=== PATIENT | male | born 1935 | race Caucasian/White ===

== ENCOUNTER 2017-06-07 07:08 | Emergency (ER) | payer MEDICARE, SELFPAY ==
[2017-06-07 07:11] VITALS: BP 201/100; PULSE 78; RESP 18; TEMP 36.3; O2SAT 98; BMI 24.6
--- NOTE | 2017-06-07 07:17 | CT_ITS ---
STUDY: CT ABDOMEN AND PELVIS WITHOUT CONTRAST REASON FOR EXAM: Male, 82 years old. Right flank pain. History of kidney stones. RADIATION DOSAGE (If Supplied By Facility): CTDIvol = ( 6.47 ) mGy, DLP = ( 291.00 ) mGycm TECHNIQUE: Transaxial images were obtained from the dome of the diaphragm to the symphysis pubis without oral contrast, and without intravenous contrast. Sagittal and coronal images were reconstructed. Individualized dose optimization techniques were used for this CT. COMPARISON: Comparison is made with prior study dated February 14, 2017. FINDINGS: Mild degree of increased markings at the lung bases suggestive of a bibasilar atelectasis. This has improved as compared to prior study. Coronary artery calcification. Stable appearance of the hepatic cysts. The largest is in the peripheral aspect of the left lobe of the liver. This measures 3 cm x 3.2 cm. Normal gallbladder and extrahepatic biliary system. There are multiple benign calcified granulomata of the spleen. Normal pancreas. Normal bilateral adrenal glands. Right perinephric stranding. Engorgement of the right kidney. Moderate right hydronephrosis and hydroureter due to a 6 mm calculus in the distal portion of the right ureter just proximal to the ureterovesical junction. Nonobstructive left intrarenal calculi. The largest measures 5 mm. There is a small hiatal hernia. Normal small intestine. There are multiple colonic diverticula consistent with diverticulosis. The appendix is visualized and appears normal. There is scattered atherosclerotic calcification of the abdominal aorta, without a demonstrated aneurysm. Normal inferior vena cava. Normal retroperitoneum. Normal urinary bladder. Marked enlargement of the prostate. The prostate measures 5.8 cm x 7.3 cm. This causes indentation of the bladder base. Central prostatic calcifications. There is a small umbilical hernia containing fat. There are diffuse degenerative changes of the visualized lumbar spine. CT/Abdomen/Pelvis without Cont IMPRESSION: 6 mm calculus in the distal portion of the right ureter causing right hydronephrosis and right hydroureter with perinephric stranding. Stable left nonobstructive intrarenal calculi. Sigmoid diverticulosis. Marked enlargement of the prostate with indentation of the bladder base. Electronically Signed: Mainor Carney MD at 9:33 EST Tel [phone], Service support ,
[2017-06-07] MEDS: 0.9% Normal Saline 1,000 ML 250 ML IV (07:28)
--- NOTE | 2017-06-07 07:30 | ED.VISSUMM ---
- ER Visit Summary Date of Service: 06/07/17 Chief Complaint: Right flank pain History of Present Illness: The patient is a [address] Reyes and Chucho Whelan. He reports that he has right flank pain that began this morning. Is a dull, intense pain that is 9 out of 10 at worst and 7 out of 10 currently. Is worsened by nothing relieved by nothing. He has had nausea without vomiting. He denies any diarrhea. His last problem was yesterday. He has had no melena or hematochezia. Reports he has dysuria without frequency that began yesterday. He states that he had hematuria approximately 2 weeks ago. No fever, chills, or other complaints. Physical Examination: Vitals: Stable. Afebrile. General: Well-nourished and well-developed. Head: Normocephalic atraumatic. Neck: Supple, no lymphadenopathy. No JVD. Nontender. Cardiovascular: Regular rate and rhythm. No murmurs. Respiratory: No respiratory distress. Clear to auscultation bilaterally. Abdominal: Soft, nontender, nondistended, normal bowel sounds. No guarding, rebound, or peritoneal signs. Back: Nontender. Extremities: Nontender, no edema. Skin: Normal color, no rash. Neurologic: Alert and oriented ?3. Cranial nerves II through XII are intact. Normal strength and sensation. Psych: Normal affect. Test Results: BMP is marked for a BUN of 22 and creatinine 1.42. His creatinine was 1.59 last February. CBC is normal. UA shows blood without infection. CT flank shows a 6 mm calculus distal right ureter with hydronephrosis/ureter and perinephric stranding. Marked enlargement of the prostate with indentation of the bladder base. Emergency Department Course and Treatment: Patient had an IV placed. He refused pain medications. Treatment Plan: The patient is already on Flomax. He will be discharged with Percocet instructed to follow-up Dr. Reyes in 3-5 days if he does not pass the stone. He will be given a urine strainer. Return to the emergency department for any worsening symptoms. Disposition: To home in improved and stable condition. Impression:. Right ureterolithiasis. 2. Chronic renal insufficiency. This note was generated with [employer] software. It may contain incorrect words, spelling, and punctuation that were not noted in review of the chart prior to signing ED Disposition - Plan for ED Patient: Chief Complaint: Flank Pain Instructions: ED Stone Renal W Colic Prescriptions: Oxycodone HCl/Acetaminophen [Percocet 5/325] 1 tablet PO Q6H PRN PRN #20 tablet PRN Reason: Pain Ondansetron [Zofran Odt] 4 mg PO Q8H PRN PRN #10 tablet PRN Reason: Nausea Referrals: Kai Coffman MD [NON-STAFF] - 3-5 Days if not improving
[2017-06-07 07:32] VITALS: BP 201/74; PULSE 67; RESP 15; O2SAT 99
[2017-06-07 07:43] LABS: Bacteria 0 SEEN /hpf (None Seen); Mucous, Urine 0 SEEN /hpf (<or=2+); Squamous Epithelial Cells - UA 0 SEEN /hpf (0-5); White Blood Cells 0 SEEN /hpf (0-5)
[2017-06-07 07:47] LABS: Absolute Lymphocyte Count 2.13 X10^3/ul (0.83-4.51); Absolute Neutrophil Count 4.1 X10^3/uL (2.0-7.7); Basophil# 0.03 X10^3/uL; Basophil% 0.4 % (0-1); Eosinophil# 0.19 X10^3/uL; Eosinophils% 2.7 % (0-5); Hematocrit 44.3 % (40-54); Hemoglobin 15.3 g/dl (13.0-16.5); Lymphocyte # 2.13 X10^3/ul (4.0); Lymphocyte % 30.6 % (19-41); Mean Corp Hgb Conc 34.5 g/gl (32-36); Mean Corpuscular Volume 92.7 fL (80-94); Mean Platelet Vol. 11.6 fl (6.2-12.0); Monocyte# 0.48 X10^3/uL; Monocyte% 6.9 % (0-10); Neutrophil % 59.1 % (47-70); Platelet Count 189 K/mm3 (150-450); RBC Distribution Width CV 13.4 % (11.6-14.6); RBC Distribution Width SD 44.4 fl (35.1-43.9); Red Blood Count 4.78 M/mm3 (4.6-6.2)
[2017-06-07 07:48] LABS: POSITIVE COUNT NO; POSITIVE DIFFERENTIAL NO; POSITIVE MORPHOLOGY NO
[2017-06-07 07:54] LABS: Color, Urine Yellow (Yellow); Glucose, Dipstick Normal (Normal); Ketone-Dipstick Negative (Negative); Leukocyte Esterase-Dipstick Negative /ul (Negative); Nitrite-Dipstick Negative (Negative); Occult Blood-Urine 150 /ul (Negative); Protein-Dipstick Negative (Negative); Specific Gravity, Urine 1.015 (1.002-1.030); Urine Bilirubin Dipstick Negative (Negative); Urine Clarity Clear (Clear); Urine Urobilinogen Normal (Normal)
[2017-06-07 07:58] LABS: Anion Gap 7 (5-15); BUN 22 mg/dL (7-18); BUN/Creat Ratio 15.5 RATIO (10-20); Calcium,Total 8.9 mg/dL (8.5-10.1); Chloride 105 mmol/L (98-107); Creatinine, Serum 1.42 mg/dL (0.70-1.30); EST Glomerular Filtration Rate 51 mL/min (>60); Est Glom Filt Rate - Afr Amer 62 mL/min (>60); Estimated Creatinine Clearance 36.09 ml/min; Glucose 100 mg/dL (70-110); Potassium 4.2 mmol/L (3.5-5.1); Sodium Level 140 mmol/L (136-145)
[2017-06-07 08:04] LABS: Red Blood Cells-Urine 10-25 SEEN /hpf (0-5)
[2017-06-07 08:32] VITALS: BP 175/67; PULSE 77; RESP 15; O2SAT 99
[2017-06-07 09:11] VITALS: BP 164/69; PULSE 63; O2SAT 98
[2017-06-07 10:00] VITALS: BP 171/73; PULSE 61; RESP 14; O2SAT 97
== END 2017-06-07 10:09 | disposition home or self-care (01) ==
PROVIDERS: Emergency Provider Emergency Medicine; Family Provider Physician Assistant; PCP Physician Assistant
DX: N13.2 Hydronephrosis with renal and ureteral calculous obstruction (principal); N18.9 Chronic kidney disease, unspecified; N40.0 Benign prostatic hyperplasia without lower urinary tract symptoms; I25.10 Atherosclerotic heart disease of native coronary artery without angina pectoris; M10.9 Gout, unspecified; Z87.442 Personal history of urinary calculi; Z79.899 Other long term (current) drug therapy
CPT/HCPCS: 74176; 80048; 81001; 85025; 96360; 96361; 99283; J7050; J2405

== ENCOUNTER 2018-05-08 21:55 | Emergency (ER) | payer MEDICARE, SELFPAY ==
[2018-05-08 21:56] VITALS: BP 165/68; PULSE 79; RESP 16; TEMP 36.6; O2SAT 97; BMI 24.4
--- NOTE | 2018-05-08 22:09 | CT_ITS ---
STUDY: CT ABDOMEN AND PELVIS WITHOUT CONTRAST REASON FOR EXAM: Male, 82 years old. Abdominal pain. Known umbilical hernia. RADIATION DOSAGE (If Supplied By Facility): CTDIvol = ( 7.21 ) mGy, DLP = ( 324.16 ) mGycm TECHNIQUE: Transaxial images were obtained from the dome of the diaphragm to the symphysis pubis without oral contrast, and without intravenous contrast. Sagittal and coronal images were reconstructed. Individualized dose optimization techniques were used for this CT. COMPARISON: 05/11/2017. FINDINGS: Lung bases are clear. Visualized heart is normal. The distal esophagus appears mildly thick-walled. No significant change compared to the prior study. There are multiple low-attenuation lesions in the liver measuring up to 3.6 cm. There is no significant change compared to the prior study. The liver is otherwise unremarkable. Calcifications in the spleen are consistent with old granulomatous disease. The spleen is otherwise unremarkable. The gallbladder is contracted. The pancreas is unremarkable. The adrenal glands are normal. There are multiple nonobstructing stones in the kidneys bilaterally, measuring up to 3 mm. There is no hydronephrosis. There is a 1 cm low-attenuation lesion in the upper pole of the left kidney. This is not characterized without contrast/too small to characterize. The kidneys are otherwise unremarkable. The aorta is normal in caliber. There is no free fluid, free air, or organized collection. No bowel obstruction or inflammatory change. Diverticulosis is noted, with no acute diverticulitis. Normal appendix. Stool burden is moderate. Urinary bladder is unremarkable. Prostate gland measures 6.1 x 5.6 x 7.1 cm. Normal abdominal wall. Degenerative changes of the lumbar spine are noted. CT/Abdomen/Pelvis without Cont IMPRESSION: 1. Nonobstructing renal calculi. 2. Small umbilical hernia. 3. Prostatic enlargement. 4. Multiple stable hepatic hypodensities. 5. Diverticulosis, no diverticulitis. Electronically Signed: Amada Molina MD at 22:56 EST Tel , Service support ,
--- NOTE | 2018-05-08 23:21 | ED.VISSUMM ---
- ER Visit Summary Date of Service: 05/08/18 Chief Complaint: Abdominal pain History of Present Illness: The patient is a 82 M presenting with abdominal pain. He states that this started earlier today. 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 He felt a bulge in his umbilical region today. He states this is now resolved. He took Naprosyn prior to arrival. He states it was not bulging for a long period of time. He denies nausea vomiting. Denies fever. Denies other complaints. Physical Examination: Vitals are stable. Patient is afebrile. Alert no acute distress. HEENT exam is unremarkable. Neck is supple. Lungs are clear and equal bilaterally. Heart is regular rate and rhythm. Abdomen is soft nontender nondistended. No guarding or rebound. Reducible umbilical hernia. Extremities are unremarkable. Skin is warm and dry. No focal neurologic deficit. Remainder of exam is unremarkable. Emergency Department Course and Treatment: CT abdomen pelvis shows nonobstructing renal calculi, small umbilical hernia, prostatic enlargement, multiple stable hepatic hypodensities, diverticulosis, no diverticulitis. Patient is resting comfortably on reevaluation. He was advised signs and symptoms for which to return to the ED. He is advised to follow-up with surgery. Advised return to ED if worsening complaints. Disposition: Discharge home Impression: Abdominal pain, resolved This note was generated with [email or web address] dictation software. It may contain incorrect words, spelling, and punctuation that were not noted in review of the chart prior to signing ED Disposition - Plan for ED Patient: Chief Complaint: Abd Pain Referrals: Marisol Whelan PA [Primary Care Provider] -
--- NOTE | 2018-05-08 23:25 | ED.DEP ---
ED Disposition - Plan for ED Patient: Chief Complaint: Abd Pain Instructions: What Is a Hernia? Referrals: Marisol Whelan PA [Primary Care Provider] - Tatum Cruz MD [STAFF PHYSICIAN] -
[2018-05-08 23:43] VITALS: BP 165/72; PULSE 69; RESP 16; O2SAT 98
--- NOTE | 2018-05-08 23:43 | ED.RN ---
REVIEWED D/C INSTRUCTIONS, FOLLOW UP CARE, AND S/S THAT WOULD WARRANT A RETURN TO THE ED WITH PT. PT VERBALIZED AN UNDERSTANDING AND DENIES FURTHER QUESTIONS FOR THIS RN. PT SKIN P/W/D, RESP EVEN AND UNLABORED, PT A&O X 3, NO DISTRESS NOTED. PT AMBULATED OUT OF ED, GAIT STEADY.
== END 2018-05-08 23:44 | disposition home or self-care (01) ==
LOC: ED 22:41
PROVIDERS: Emergency Provider Emergency Medicine; Family Provider Physician Assistant; PCP Physician Assistant
DX: R10.9 Unspecified abdominal pain (principal); E78.00 Pure hypercholesterolemia, unspecified; Z79.82 Long term (current) use of aspirin; Z79.899 Other long term (current) drug therapy
CPT/HCPCS: 74176; 99282

== ENCOUNTER 2018-09-26 11:21 | Emergency (ER) | payer MEDICARE, SELFPAY ==
[2018-09-26 11:22] VITALS: BP 204/88; PULSE 62; RESP 18; TEMP 36.6; O2SAT 100; BMI 25.0
--- NOTE | 2018-09-26 11:58 | ED.DCSUM_ITS ---
- ER Visit Summary Date of Service: 09/26/18 Chief Complaint: Umbilical hernia History of Present Illness: The patient is a 83 M who sees Chucho Whelan and Dr. Cruz. He reports that last fall he had a umbilical hernia that resolved with conservative management and saw Dr. Cruz for this. States that he was doing well until 930 this morning when this occurred again. He reports that he has gas pain that was 8 out of 10 at worst and is 1 out of 10 currently. Is worsened by movement. Is relieved by laying back and Aleve. He denies any nausea, vomiting, or diarrhea. His last bowel movements today. No melena or hematochezia. No fever, chills, dysuria, or frequency. Physical Examination: Vitals: Stable. Afebrile. General: Well-nourished and well-developed. Head: Normocephalic atraumatic. Neck: Supple, no lymphadenopathy. No JVD. Nontender. Cardiovascular: Regular rate and rhythm. No murmurs. Respiratory: No respiratory distress. Clear to auscultation bilaterally. Abdominal: Soft, mild tenderness palpation surrounding an umbilical hernia, nondistended, normal bowel sounds. No guarding, rebound, or peritoneal signs. Back: Nontender. Extremities: Nontender, no edema. Skin: Normal color, no rash. Neurologic: Alert and oriented ?3. Cranial nerves II through XII are intact. Normal strength and sensation. Psych: Normal affect. Emergency Department Course and Treatment: The hernia was easily reduced in the emergency department. The patient was observed over the course of half an hour walk about the department with no further herniated bowel. Treatment Plan: I had a prolonged discussion with the patient about the course of hernia. He is instructed to return to emerge department if he is unable to reduce this. Follow-up with Dr. Cruz for potential repair of this. Disposition: To home in improved and stable condition. Impression: 1. Umbilical hernia. This note was generated with [employer] dictation software. It may contain incorrect words, spelling, and punctuation that were not noted in review of the chart prior to signing ED Disposition - Plan for ED Patient: Disposition: Home or Assisted Living Instructions: What Is a Hernia? Referrals: Tatum Cruz MD [STAFF PHYSICIAN] - 3-5 Days
--- NOTE | 2018-09-26 12:17 | ED.RN ---
PT AMBULATED AROUND DEPARTMENT DR LOBO. PT HAD STEADY NORMAL GAIT WITHOUT LOSS OF BALANCE. AFTER RETURNING TO THE ROOM HERNIA REMAINED IN ABD. NO BULGES OR MASSES IN THE UMBILICAL AREA. PT STATES IT FEELS LIKE IT'S IN. DR ELISE IN FORMED. Adrian BUSTOS, RN [id number]
[2018-09-26 12:19] VITALS: BP 178/106; PULSE 68; RESP 16; O2SAT 98
== END 2018-09-26 12:24 | disposition home or self-care (01) ==
PROVIDERS: Emergency Provider Emergency Medicine; Family Provider Physician Assistant; PCP Physician Assistant
DX: K42.9 Umbilical hernia without obstruction or gangrene (principal); I10 Essential (primary) hypertension; I25.10 Atherosclerotic heart disease of native coronary artery without angina pectoris; M10.9 Gout, unspecified; Z79.899 Other long term (current) drug therapy; Z79.82 Long term (current) use of aspirin
CPT/HCPCS: 99282; A4216

== ENCOUNTER 2020-06-05 14:00 | Outpatient (RCR) | payer MEDICARE, SELFPAY | END 2020-06-05 23:59 | LOC: IMMUN 14:00 | PROVIDERS: PCP Physician Assistant; Visit Provider Family Medicine | DX: Z23 Encounter for immunization (principal) | CPT/HCPCS: 0011A; 0012A; 91301 ==

== ENCOUNTER 2020-08-26 19:27 | Emergency (ER) | payer MEDICARE, SELFPAY ==
[2020-08-26 19:28] VITALS: BP 155/76; PULSE 89; RESP 16; TEMP 36.6; O2SAT 98; BMI 25.4
[2020-08-26 19:31] VITALS: BP 155/76; PULSE 82; RESP 16; O2SAT 97
--- NOTE | 2020-08-26 19:47 | RAD_ITS ---
STUDY: X-RAY - RIGHT HUMERUS REASON FOR EXAM: Male, 85 years old. FALL, PAIN -- ED WAITING ROOM TECHNIQUE: 2 view(s) of the humerus. COMPARISON: None. FINDINGS: Normal visualized humerus. There is no demonstrated fracture or osseous destructive process. There is no demonstrated soft tissue abnormality. RAD/Humerus min 2 Views IMPRESSION: Normal x-ray examination of the humerus. Electronically Signed: Abhinav Vale DO at 20:53 EDT Tel [phone], Service support ,
--- NOTE | 2020-08-26 20:26 | RAD_ITS ---
STUDY: X-RAY - RIGHT WRIST REASON FOR EXAM: Male, 85 years old. Pain and fall TECHNIQUE: 3 view(s) of the wrist were obtained. COMPARISON: None. FINDINGS: Normal visualized distal radius and ulna. Normal radiocarpal articulation. Normal distal radioulnar articulation. Normal carpal bones. Normal carpal articulations. Normal carpometacarpal articulation of the thumb. Normal second through fifth carpometacarpal articulations. Normal visualized metacarpal bones. The soft tissue structures are unremarkable. RAD/Wrist min 3 Views IMPRESSION: Normal x-ray examination of the wrist. Electronically Signed: Abhinav Vale DO at 20:57 EDT Tel [phone], Service support ,
--- NOTE | 2020-08-26 20:26 | RAD_ITS ---
STUDY: X-RAY - RIGHT SHOULDER REASON FOR EXAM: Male, 85 years old. Pain post fall TECHNIQUE: 4 view(s) of the shoulder. COMPARISON: None. FINDINGS: Normal glenohumeral articulation. Normal acromioclavicular joint. Normal acromion. Normal humeral head and visualized proximal humerus. The soft tissue structures are unremarkable. Normal visualized pulmonary apex. RAD/Shoulder min 2 Views IMPRESSION: Normal x-ray examination of the shoulder. Electronically Signed: Abhinav Vale DO at 20:55 EDT Tel [phone], Service support ,
--- NOTE | 2020-08-26 21:20 | ED.VISSUMM ---
- ER Visit Summary Date of Service: 08/26/20 Chief Complaint: Fall with right shoulder and right wrist pain. History of Present Illness: The patient is a 85 M history of CAD, renal insufficiency and cardiac stent. Patient states that he lost his balance at home fell counter backwards initially hitting his right hand and then his shoulder. This occurred around 430 today. He is right-hand dominant. He denies any loss of conscious. He states he hit his head on the wall but does not have a headache or any neck pain. Recent illness. Physical Examination: Older male coming by family. Vital signs stable afebrile. HEENT exam unremarkable atraumatic. Neck nontender. Pupils round reactive light. Lungs clear to auscultation bilaterally. Heart regular rhythm no murmur. Chest were nontender. Abdomen soft nontender. Normal bowel sounds no peritoneal signs. Pelvic girdle intact. Both lower extremities are nontender no deformity normal range of motion. Dorsi plantarflexion intact. Hips are nontender. No shortening or rotation. Left upper extremity nontender normal range of motion normal narrow fabric loom fixer strength. Right shoulder is mild pain on palpation. There is no deformity. He has limited range of motion of his right shoulder due to pain. There is no gross bony deformity. He has a superficial abrasion on his right elbow is able to flex and extend the elbow. Also he is old right biceps tear which is not new. Forearm is nontender except he has tenderness around the right wrist primarily on the distal ulna. Hands nontender no deformity. Test Results: Right humerus x-ray 2 views interpreted by myself the radiologist shows no acute abnormality. Right shoulder x-ray shows no acute abnormality. Right wrist x-ray 3 views interpreted by myself and radiologist shows no acute abnormality. All his x-rays were read as negative. Emergency Department Course and Treatment: Older male fall decreased range of motion of his right shoulder. X-rays are negative. He did not waiting for pain. Concern is for possible soft tissue injury or even a tear. When I elevate his right arm he is able to hold it up so he does not have a complete rotator cuff tear. Treatment Plan: Sling. Tylenol for pain. Ice. Follow-up with orthopedics. For further evaluation of the shoulder. Disposition: Discharge Impression: Fall Right shoulder contusion Decreased range of motion right shoulder rule out soft tissue injury Right wrist sprain This note was generated with [employer] software. It may contain incorrect words, spelling, and punctuation that were not noted in review of the chart prior to signing ED Disposition - Plan for ED Patient: Referrals: Marisol Whelan PA [Primary Care Provider] -
--- NOTE | 2020-08-26 21:24 | ED.DEP ---
ED Disposition - Plan for ED Patient: Disposition: Home or Assisted Living Instructions: ED Contusion, Upper Extremity Referrals: Marisol Whelan PA [Primary Care Provider] - As Needed Arias Meza MD [STAFF PHYSICIAN] - As soon as possible Additional Instructions: Ice to your shoulder and wrist to decrease pain and swelling. Tylenol for pain. Sling except for bathing or sleeping. Call and follow-up with local orthopedic physician for further evaluation of your shoulder. There are no broken bones or any dislocations on the x-ray. My concern is for possible tear in your right shoulder with decreased range of motion.
== END 2020-08-26 21:31 | disposition home or self-care (01) ==
PROVIDERS: Emergency Provider Emergency Medicine; PCP Physician Assistant
DX: S40.011A Contusion of right shoulder, initial encounter (principal); S63.501A Unspecified sprain of right wrist, initial encounter; I25.10 Atherosclerotic heart disease of native coronary artery without angina pectoris; Z95.5 Presence of coronary angioplasty implant and graft; W19.XXXA Unspecified fall, initial encounter
CPT/HCPCS: 73030; 73060; 73110; 99283

== ENCOUNTER 2020-10-23 07:00 | Outpatient (RCR) | payer MEDICARE, SELFPAY ==
--- NOTE | 2020-09-25 11:47 | HP.PTEVAL ---
Patient's Visit Information MYNOR MEDINA is a 85 year old M referred to Physical Therapy by Dr. Daniel Ortiz MD with a diagnosis of Strain of rotator cuff muscle/tendon, OA of R shoulder. Date of Evaluation: 09/25/20 Physical Therapist: Ab Elizabeth DPT - Visit Plan Frequency: 1-2x /Week Duration: 4-6 Weeks Plan: The pt. is currently independent with his HEP of shoulder isometrics, AAROM into flexion and abduction, and scapular retractions with a GTB. Strengthen the pts. shoulder and scapular strength and increase his ROM by PROM, AAROM, and joint mobs to the glenohumeral joint. Use modalities to decrease his pain. - Subjective The pt. is here today for right shoulder pain which started about a month ago, due to a fall. The pt. was referred by Dr. Ortiz and got a steroid injection yesterday to relieve some of the pts. pain. He states that the injection has taken his pain away and he feels better this morning than he had been. The pt. 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 He stated that he fell and hit his elbow. The pt. has trouble reaching out to the side, reaching overhead, and is currently sleeping in a chair due to pain. His pain is a 0/10 right now, but can get up to a 7/10 while working or bring his arm out to the side. He explains his pain as sharp and shooting, but does have dull, achy pain occasionally down the R biceps muscle. He reports pulling bilateral bicep muscles a little over a year ago from a aguirre pulling away from him. For pain relief, the pt. takes Ibuprofen occasionally, but has not used ice. 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 The pt. would like to decrease his pain, so he can manage all ADL's and work with his sheep. He does have a neighbor that helps out with the feeding recently. He denies any N/T, any SOB, any chest pain, any weight gain/loss, any change in vision/hearing, and any frequent headaches. - Pain R shoulder Pain Intensity (Out of 10): 0 Pain Intensity Range: 7 - Objective Posture: Rounded shoulders, forward head, excessive thoracic kyphosis in sitting and standing. MMT: shoulder flexion L 5/5, R 4+/5, shoulder abd L 5/5 , R 4/5, R biceps 5/5, R bracioradialis 5/5, R brachilais 5/5 with pain, ER L 5/5, R 3+/5, IR L 5/5, 4/5, upper trap bilat 5/5, elbow extension bilat 5/5. AROM: 90deg abd R with pain, 125deg flexion R with pain, 118deg abd L, 130deg flexion L, IR R 62deg, L 65deg, ER R 60deg with pain, L 90deg. The pt. was able to reach over head, but compensated using upper trap and deltoid with both L and R arms, the pt. was limited with his R arm when reaching behind his back. With PROM, the pt. was able to tolerate about 10-15 more degrees, but still experienced pain in the anterior shoulder. Palpation: TTP at proximal insertion of biceps tendon, corocoid process, and lateral to the acromion. Sensation: UE all intact, no limitations. Reflexes: bilat brachioradialis and biceps both 2+ = normal. Special Tests: + painful arc, + Cazares Zechariah, - drop arm, but caused pain, - lag sign, but caused anterior shoulder pain, - belly press test, - lift off test, but did cause some pain, - speeds test, had pain with palm down, + infraspinatus test - Goals Goal 1:: LTG: The pt. will be independent and compliant with his HEP. Goal Time Frame: 2-4 Weeks Goal 2:: LTG: The pt. will improve his shoulder flexion and abduction ROM by 20deg, so he can reach into cupboards without having pain. Goal Time Frame: 4-6 Weeks Goal 3:: LTG: The pt will be able to increase his R ER, abduction, and flexion shoulder strength by 1-2 muscle grades. Goal Time Frame: 4-6 Weeks Goal 4:: LTG: The pt. 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 - Rehabilitation Potential Physical Therapy Diagnosis: The pt. is an 85 yo male who presents to the clinic with right shoulder pain with signs and symptoms consistent with a muscle strain or tear to the rotator cuff musculature, as well as shoulder osteoarthritis. The pt. exhibits strength and ROM deficits in abduction, flexion, internal rotation, and external rotation. The pt. has been experiencing the pain for about a month now and is limited from performing his farming duties and ADL's around the home. The pt. is needing skilled PT to address his impairments and limitations, so he can participate in all activities without pain. Rehabilitation Potential: Good - Anticipated Interventions Patient/Client Instruction: Educate patient on: Condition, Plan of Care For the Purpose of:: To decrease pain, To decrease swelling/inflammation, To increase ROM, To improve muscle performance and motor function, To improve ability to perform ADL's, To increase tolerance to activity/condition/position, To increase flexibility/ROM, To improve tolerance to ADL's Therapeutic Exercise to Include: Strength training, Endurance training, Coordination, Body mechanics, Postural training, Flexibilty training, Passive ROM, Active ROM, Scapular Strength/Stabilization For the Purpose of:: To decrease pain, To decrease swelling/inflammation, To increase ROM, To improve muscle performance and motor function, To improve ability to perform ADL's, To increase tolerance to activity/condition/position, To improve performance and independence with ADL's, To decrease soft tissue restriction, To increase flexibility/ROM, To assume or resume ADL's, To improve ability to perform tasks related to life management Manual Therapy Techniques to Include: Trigger point massage, Mobilization, Passive ROM, Functional dry needling, Soft tissue mobilization For the Purpose of:: To decrease pain, To decrease swelling/inflammation, To increase ROM, To improve nutrient delivery to tissue, To improve muscle performance and motor function, To improve ability to perform ADL's, To decrease soft tissue restriction, To increase flexibility/ROM, To improve tolerance to ADL's TENS: Yes Cryotherapy (ice pack, ice massage): Yes Thermo therapy (hot pack): Yes Ultrasound (thermal/non thermal): Yes For the Purpose of:: To decrease pain, To decrease swelling/inflammation, To increase ROM, To improve nutrient delivery to tissue, To improve muscle performance and motor function, To improve health of tissue, To decrease soft tissue restriction, To increase flexibility/ROM, To improve tolerance to ADL's Thank you for the opportunity to evaluate your patient. For Medicare and Medicare HMO plans, please review the plan of care and approve it. It will need to be FAXED BACK to us at [phone] for Medicare purposes. For Medicare only, by signing this I certify the plan of care. Please let me know if there are questions or concerns regarding this plan of care. Physician Signature: Date:
--- NOTE | 2020-11-27 10:31 | HP.PTDCSUM ---
It has been my pleasure to treat MYNOR MEDINA referred by Dr. Daniel Ortiz MD, with the diagnosis of Strain of rotator cuff muscle/tendon, OA of R shoulder for a total of 9 visit(s). Discharge Date: 10/23/20 Please see the following information for a summary of their discharge status. Subjective: Pt. reports overall doing better. Pt. reports no pain currently. He is compliant with his HEP without issues. Pt. reports being 90% better overall. R shoulder Pain Intensity (Out of 10): 0 % Improvement: 90 Objective/Function: Pt. is overall doing well. I review his HEP with him today and he plans to continue on his own. ROM: R shoulder: flexion 160deg NE, abd 155deg NE, functional ER C4 NE, functional IR L3 NE. Pt. does have some tightness in his shoulder but is overall doing well. MMT: R shoulder: flexion 4/5, abd 4/5, ext 5/5, ER 4/5, IR 4+/5. Pt. still has some weakness in his shoulder and I would like him to continue with RTC stability exercises and deltoid strengthening. I would like him to also continue to work on ROM to maintain is current mobility. Pt. consents. Pt. is I with his HEP for the gym and has had out to use. Goal 1:: LTG: The pt. will be independent and compliant with his HEP. Goal Progress: Goal Met Goal 2:: LTG: The pt. will improve his shoulder flexion and abduction ROM by 20deg, so he can reach into cupboards without having pain. Goal Progress: Goal Met Goal 3:: LTG: The pt will be able to increase his R ER, abduction, and flexion shoulder strength by 1-2 muscle grades. Goal Progress: Progressing Goal 4:: LTG: The pt. 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 Goal Progress: Goal Met Plan: DC to HEP at this point in time. Discharge Comments: Pt. did well with PT with focus on ROM and RTC stability exercises. He is to continue with these in gym setting. He has handout for exercises. pt. consents. Pt. pleased with progress. If he has questions he can call back, but if he has a major change he has been instructed to call back to physician. If there are questions or concerns regarding this patient's physical therapy, please feel free to call me at [phone]. Thank you for the referral of this patient. Sincerely, MARION GandhiT
== END 2020-10-23 19:00 | disposition home or self-care (01) ==
LOC: PT 07:00
PROVIDERS: PCP Physician Assistant; Referring Provider Specialist; Visit Provider Specialist
DX: S46.011D Strain of muscle(s) and tendon(s) of the rotator cuff of right shoulder, subsequent encounter (principal); X58.XXXD Exposure to other specified factors, subsequent encounter; M19.011 Primary osteoarthritis, right shoulder
CPT/HCPCS: 97110; 97140; 97161; 97164

== ENCOUNTER 2021-01-02 08:30 | Outpatient (RCR) | payer MEDICARE, SELFPAY ==
--- NOTE | 2020-12-05 12:12 | HP.PTEVAL_ITS ---
Patient's Visit Information MYNOR MEDINA is a 85 year old M referred to Physical Therapy by Kai Roldan PA-C with a diagnosis of R hip pain and lumbar spondylolithesis and intervertebral disc disorder. Date of Evaluation: 12/05/20 Physical Therapist: Ab Elizabeth DPT - Visit Plan Frequency: 2x /Week Duration: 4 Weeks Plan: Start with standing extension (careful with prone due to R shoulder pain), add in seated lumbar extension and active trunk extension machine. Progress with stabilziation and stretching at tolerated. - Subjective Pt. is here today for his initial evaluation with diagnosis of R hip pain and lumbar spondylolithesis and intervertebral disc disorrder. Pt. 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 Pt. reports the objects was about 80 lbs and had to lift awkwardly. Pt. reports having pain that does pain that radiates down his R leg to his mid thigh. Pt. does also report some pain at lateral hip and lumbar spine as well. It feels like something gest caught. AMs are worse. He did trial a steriod which did not change a bit. He does report that his pain seems to be shifting a bit. Pt. denies N/T. He is able to sleep okay, pain is not waking him up. 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 He reports not much improvement in his symptoms over the past few weeks since seeing physician. - Pain Lumbar spine Pain Intensity (Out of 10): 1 Pain Intensity Range: 0, 7 Comment: with bending over R leg Pain Intensity (Out of 10): 1 Pain Intensity Range: 0, 8 - Objective POSTURE: Pt. has decent posture in stnace, slight rounded shoulders and fwrd flexed. Pt. has slight anterior pelvic tilt. PALPATION: Pt. has pain at L5-S1 and L side of SI joint, PSIS. No pain at lateral hip and gluteal region. NEURO: Pt. has normal sensation in BLEs, normal DTR of B patella, but decreased 1+ at bilateral Achilles. Pt. is able to rise on heels and toes without issues. ROM: LUMBAR SPINE: flexion nil/min loss but has increase pain with return (catches just prior to neutral positioning), ext mod loss decrease better, SB mod loss BE, rotation min/mod loss NE. Pt. has decent B hip ROM without increase in symptoms, except R hip IR does cause mild SI joint pain. Tightness in B HS noted. MMT: Pt. has decent strength throughout BLEs. Pt. has 5/5 throughout distal LEs. 4+/5 hip strength bilat. poor+ core strength noted. GAIT: Pt. has slight flexed posture with gait. Normal arm swing noted, normal step length and minimal lateral sway. STAIRS: normal with use of BHR, reciprocal pattern noted. - Special Tests L/S Slump test left side: Negative L/S Slump test right side: Positive L/S Left Straight Leg Raise: Negative L/S Right Straight Leg Raise: Positive Lumbar Standing: Flexion - Mechanical Response: No effect Lumbar Standing: Flexion - Symptoms During Testing: No effect Lumbar Standing: Flexion - Symptoms After Testing: No effect Lumbar Standing: Extension - Mechanical Response: No effect Lumbar Standing: Extension - Symptoms During Testing: Decreases Lumbar Standing: Extension - Symptoms After Testing: Better Lumbar Standing: Right Side Glides - Mechanical Response: No effect Lumbar Standing: Right Side [place] - Symptoms During Testing: No effect Lumbar Standing: Right Side [place] - Symptoms After Testing: No effect Lumbar Standing: Left Side [place] - Mechanical Response: No effect Lumbar Standing: Left Side [place] - Symptoms During Testing: No effect Lumbar Standing: Left Side [place] - Symptoms After Testing: No effect R Hip Scour: Negative R Hip TANISHA - Intraarticular Pathology: Negative R Hip FADDIR - Labrum: Negative R Hip Impingement Provocation - Labrum: Negative R Hip Trendelenberg - Glut Medius: Negative - Goals Goal 1:: LTG: Pt. to be I with HEP. Goal Time Frame: 2-4 Weeks Goal 2:: STG: pt. to have decreased AM pain by 50% allowing for increased quality of life. Goal Time Frame: 2 Weeks Goal 3:: LTG: pt. to have full lumbar Flexion without increase in symptoms upon returning. Goal Time Frame: 2-4 Weeks Goal 4:: LTG: pt. to be able to sit and complete all of his work duties without increase in symptoms Goal Time Frame: 2-4 Weeks Goal 5:: LTG: Pt. to have increased B hip and core strength to at least 4+/5 throughout. Goal Time Frame: 2-4 Weeks - Rehabilitation Potential Physical Therapy Diagnosis: Pt. has signs and symptoms consistent lumbar spondylolisthesis and intervertebral disc disorder. Pt. had some positive neural signs with slump testing and SLR. Pt. is very stiff into extension and had positive reduction in symptoms with extension progression. I would like him to start here and progress core stability. Rehabilitation Potential: Good - Anticipated Interventions Patient/Client Instruction: Educate patient on: Condition, Plan of Care, Risk Factors, Benefits of Fitness Program For the Purpose of:: To improve decision making, To facilitate caregiver knowledge, To improve self management, To prevent re-injury, To improve ability to perform tasks related to life management Therapeutic Exercise to Include: Strength training, Power training, Coordination, Postural training, Flexibilty training, Gait and locomotor training For the Purpose of:: To decrease swelling/inflammation, To increase ROM, To improve nutrient delivery to tissue, To increase oxygenation perfusion, To improve muscle performance and motor function, To decrease soft tissue restriction, To increase flexibility/ROM, To improve endurance Manual Therapy Techniques to Include: Mobilization For the Purpose of:: To decrease pain, To decrease swelling/inflammation, To increase ROM, To improve nutrient delivery to tissue, To increase oxygenation perfusion Ultrasound (thermal/non thermal): Yes For the Purpose of:: To decrease pain, To decrease swelling/inflammation, To increase ROM Thank you for the opportunity to evaluate your patient. For Medicare and Medicare HMO plans, please review the plan of care and approve it. It will need to be FAXED BACK to us at [phone] for Medicare purposes. For Medicare only, by signing this I certify the plan of care. Please let me know if there are questions or concerns regarding this plan of care. Physician Signature: Date:
--- NOTE | 2021-01-01 08:28 | HP.PTREVAL ---
Kai Roldan PA-C, It has been my pleasure to treat MYNOR MEDINA over the last 8 visits for R hip pain and lumbar spondylolithesis and intervertebral disc disorder. Please see the progress note below for an update on the physical therapy plan of care! Subjective: Pt. reports overall doing better. He reports 2/10 pain pre treatment. HEP compliant with CARMEN and core stability exercises. Pt. denies N/T in either LE. Objective/Function: Pt. continues to progress as expected. He is tight into lumbar ext and B hip extension. He has positive response with working into both. HE is overall progress well. I would like him to continue to work on lumbar and hip extension ROM and strengthening. Re assessment tomorrow. Plan Plan: Pt. to follow up with physician later today. He has 1 more appointment tomorrow. Goals Goal 1:: LTG: Pt. to be I with HEP. Goal Time Frame: 2-4 Weeks Goal 2:: STG: pt. to have decreased AM pain by 50% allowing for increased quality of life. Goal Time Frame: 2 Weeks Goal 3:: LTG: pt. to have full lumbar Flexion without increase in symptoms upon returning. Goal Time Frame: 2-4 Weeks Goal 4:: LTG: pt. to be able to sit and complete all of his work duties without increase in symptoms Goal Time Frame: 2-4 Weeks Goal 5:: LTG: Pt. to have increased B hip and core strength to at least 4+/5 throughout. Goal Time Frame: 2-4 Weeks Anticipated Interventions Patient/Client Instruction: Educate patient on: Condition, Plan of Care, Risk Factors, Benefits of Fitness Program For the Purpose of:: To improve decision making, To facilitate caregiver knowledge, To improve self management, To prevent re-injury, To improve ability to perform tasks related to life management Therapeutic Exercise to Include: Strength training, Power training, Coordination, Postural training, Flexibilty training, Gait and locomotor training For the Purpose of:: To decrease swelling/inflammation, To increase ROM, To improve nutrient delivery to tissue, To increase oxygenation perfusion, To improve muscle performance and motor function, To decrease soft tissue restriction, To increase flexibility/ROM, To improve endurance Manual Therapy Techniques to Include: Mobilization For the Purpose of:: To decrease pain, To decrease swelling/inflammation, To increase ROM, To improve nutrient delivery to tissue, To increase oxygenation perfusion Ultrasound (thermal/non thermal): Yes For the Purpose of:: To decrease pain, To decrease swelling/inflammation, To increase ROM Please do not hesitate to contact me at [phone] by phone or if you have questions or concerns regarding this new plan of care! Sincerely, MARION GandhiT
--- NOTE | 2021-02-09 10:31 | HP.PTDCSUM ---
It has been my pleasure to treat MYNOR MEDINA referred by Kai Roldan PA-C, with the diagnosis of R hip pain and lumbar spondylolithesis and intervertebral disc disorder for a total of 9 visit(s). Discharge Date: Please see the following information for a summary of their discharge status. Subjective: Pt. saw physician yesterday who was referred to spinal specialist and having MRI in a few weeks. He reports overall doing well 2/10 pain currently. He reports having periods where his back locks up on him. He reports having reduced pain with all extension progressions. Lumbar spine Pain Intensity (Out of 10): 2 R leg Pain Intensity (Out of 10): 0 % Improvement: 75 Objective/Function: Pt. is overall doing well. Hs has improved ROM by 25% in all directions. Pt. reports decreased pain with CARMEN. Limited with REIL due to shoulder issue. Pt. reports no pain post PT this date. Pt. Goal 1:: LTG: Pt. to be I with HEP. Goal 2:: STG: pt. to have decreased AM pain by 50% allowing for increased quality of life. Goal 3:: LTG: pt. to have full lumbar Flexion without increase in symptoms upon returning. Goal 4:: LTG: pt. to be able to sit and complete all of his work duties without increase in symptoms Goal 5:: LTG: Pt. to have increased B hip and core strength to at least 4+/5 throughout. Plan: Pt. to be DC form PT at this point in time. If there are questions or concerns regarding this patient's physical therapy, please feel free to call me at [phone]. Thank you for the referral of this patient. Sincerely, Ab Elizabeth DPT
== END 2021-01-02 19:00 | disposition home or self-care (01) ==
LOC: PT 08:30
PROVIDERS: PCP Physician Assistant; Referring Provider Physician Assistant; Visit Provider Physician Assistant
DX: M16.11 Unilateral primary osteoarthritis, right hip (principal); M51.36 Other intervertebral disc degeneration, lumbar region; M43.16 Spondylolisthesis, lumbar region
CPT/HCPCS: 97110; 97161

== ENCOUNTER 2021-03-06 09:00 | Outpatient (RCR) | payer MEDICARE, SELFPAY ==
--- NOTE | 2021-02-09 11:44 | HP.PTEVAL_ITS ---
Patient's Visit Information MYNOR MEDINA is a 85 year old M referred to Physical Therapy by Dr. Carlos Garnica DO with a diagnosis of lumbar spinal stenosis w/o neurogenic claudication and spondylosis w radicu. Date of Evaluation: 02/05/21 Physical Therapist: Ab Elizabeth DPT - Visit Plan Frequency: 2x /Week Duration: 4 Weeks Plan: Start with flexion ROM at start lumbar spine, Progress neutral spine core stability. May use US to aide in symptom reduction. - Subjective Pt. is here today for his initial evaluation with diagnosis of lumbar spinal stenosis without neurogenic claudication and spondylosis with radiculopathy. Pt. is known to this PT. Pt. did have an MRI which he reports having multiple areas of spinals stenosis, but also reports multiple levels of disc herniations. Pt. has been having increasing LBP in mornings, that improves as the day progresses. He reports pain with lifting, bending, standing. No pain with sitting, decreased pain with sitting, and decreased pain when walking with slightly bent over. Pt. reports greatest pain in AMs, with high levels of stiffness. He reports having to walk bent over in the AMs to tolerate walking. Pt. does have pain radiating down his legs (both legs) to mid thigh (posterior) at times. Pt. denies BLE weakness. He did report being able to lift 5# bags over his head [place] times [place] with minimal issues. Pt. is able to sleep well and no saddle region pain. 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 - Pain Lumbar spine Pain Intensity (Out of 10): 3 Pain Intensity Range: 5 B posterior thighs Pain Intensity (Out of 10): 5 Pain Intensity Range: 0, 5 - Objective POSTURE: Pt. has sway back posture in stance. pt. has increased thoracic kyphosis and reduce lumbar lordosis. Pt. has general flexed posture in stance. PALPATION: Pt. has tenderness at L1-L4 with spring testing, with hypomobility noted. No pain with palpation of BLEs. NEURO: no N/T in either LE. Normal DTR of BLEs. ROM: LUMBAR SPINE: flexion mod loss increase NW, ext max loss increase NW, SB min loss NE, rotation mod loss increase NW. Pt. has B normal hip ROM. MMT: BLEs: 5/5 throughout; except 4/5 in B hip abd/flexion/ext. Core strength- fair-. GAIT: Pt. ambulates with generalized flexed posture, increased pain with erect posture. Decreased step length with minimal arm swing. - Balance/Special Test Scores Oswestry Low Back Score: 20 - Goals Goal 1:: LTG: Pt. to be I with HEP. Goal Time Frame: 4-6 Weeks Goal 2:: LTG: Pt. to have increased lumbar ROM by 25% in all directions. Goal 3:: STG: pt. to sleep throughout the night without increase in symptoms Goal Time Frame: 2-4 Weeks Goal 4:: LTG: Pt. to have increased BLE and core strength increased to 5/5 throughout. Goal Time Frame: 4-6 Weeks Goal 5:: LTG: pt. to ambulate unlimited distances with 0-2/10 pain in lumbar spine. 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 Goal Time Frame: 4-6 Weeks - Rehabilitation Potential Physical Therapy Diagnosis: Pt. has signs and symptoms consistent with lumbar spinal stenosis without neurogenic claudication and spondylosis with radiculopathy. Pt. has increased symptoms with extension and in AMs. Pt. has pain that radiates down B posterior thighs, R worse than L. Pt. would benefit from PT to work on reducing symptoms, increasing core/hip strength and improving posture. Rehabilitation Potential: Good - Anticipated Interventions Patient/Client Instruction: Educate patient on: Condition, Plan of Care, Risk Factors, Benefits of Fitness Program For the Purpose of:: To foster healthy habits, To improve decision making, To facilitate caregiver knowledge, To improve self management, To prevent re- injury, To improve ability to perform tasks related to life management Therapeutic Exercise to Include: Strength training, Power training, Postural training, Flexibilty training, Passive ROM, Active ROM, Dynamic Lumbar Stabilization, Toro Exercises For the Purpose of:: To decrease pain, To decrease swelling/inflammation, To increase ROM, To improve nutrient delivery to tissue, To increase oxygenation perfusion, To improve muscle performance and motor function, To improve ability to perform ADL's, To increase tolerance to activity/condition/position, To improve health of tissue, To decrease soft tissue restriction, To increase flexibility/ROM Manual Therapy Techniques to Include: Mobilization, Soft tissue mobilization For the Purpose of:: To decrease pain, To decrease swelling/inflammation, To increase ROM, To improve nutrient delivery to tissue Ultrasound (thermal/non thermal): Yes Pelvic traction supine: Yes For the Purpose of:: To decrease pain, To decrease swelling/inflammation, To increase ROM, To improve nutrient delivery to tissue Thank you for the opportunity to evaluate your patient. For Medicare and Medicare HMO plans, please review the plan of care and approve it. It will need to be FAXED BACK to us at [phone] for Medicare purposes. For Medicare only, by signing this I certify the plan of care. Please let me know if there are questions or concerns regarding this plan of care. Physician Signature: Date:
--- NOTE | 2021-03-06 09:55 | HP.PTREVAL_ITS ---
Dr. Carlos Garnica, DO, It has been my pleasure to treat MYNOR MEDINA over the last 9 visits for lumbar spinal stenosis w/o neurogenic claudication and spondylosis w radicu. Please see the progress note below for an update on the physical therapy plan of care! Subjective: Pt reports he saw the pain doctor and he is waiting back to hear from insurance about when he can schedule for an injection, but agreed that doing HEP at home until he gets the injection sounds like a good plan. Objective/Function: STRENGTH: Right hip flexors : 5/5, hip abductors: 5/5, hip adductors 5/5, knee flexors 5/5, knee extensors 5/5; Left: hip flexors : 5/5, hip abductors: 5/5, hip adductors 5/5, knee flexors 5/5, knee extensors 5/5 Plan Plan: Patient stated they would like to wait and receive injection before returning to therapy to see if the injection helps in managing the pain. Pt was given a HEP to continue working on maintaining strength as well as improving ROM. Balance/Gait/Functional tests - Balance/Special Test Scores Oswestry Low Back Score: 20 Goals Goal 1:: LTG: Pt. to be I with HEP. Goal Time Frame: 4-6 Weeks Goal Progress: Progressing Goal 2:: LTG: Pt. to have increased lumbar ROM by 25% in all directions. Goal Progress: Progressing Goal 3:: STG: pt. to sleep throughout the night without increase in symptoms Goal Time Frame: 2-4 Weeks Goal Progress: Not Progressing Goal 4:: LTG: Pt. to have increased BLE and core strength increased to 5/5 throughout. Goal Time Frame: 4-6 Weeks Goal Progress: Goal Met Goal 5:: LTG: pt. to ambulate unlimited distances with 0-2/10 pain in lumbar spine. 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 Goal Time Frame: 4-6 Weeks Goal Progress: Progressing Anticipated Interventions Patient/Client Instruction: Educate patient on: Condition, Plan of Care, Risk Factors, Benefits of Fitness Program For the Purpose of:: To foster healthy habits, To improve decision making, To facilitate caregiver knowledge, To improve self management, To prevent re- injury, To improve ability to perform tasks related to life management Therapeutic Exercise to Include: Strength training, Power training, Postural training, Flexibilty training, Passive ROM, Active ROM, Dynamic Lumbar Stabilization, Toro Exercises For the Purpose of:: To decrease pain, To decrease swelling/inflammation, To increase ROM, To improve nutrient delivery to tissue, To increase oxygenation perfusion, To improve muscle performance and motor function, To improve ability to perform ADL's, To increase tolerance to activity/condition/position, To improve health of tissue, To decrease soft tissue restriction, To increase flexibility/ROM Manual Therapy Techniques to Include: Mobilization, Soft tissue mobilization For the Purpose of:: To decrease pain, To decrease swelling/inflammation, To increase ROM, To improve nutrient delivery to tissue Ultrasound (thermal/non thermal): Yes Pelvic traction supine: Yes For the Purpose of:: To decrease pain, To decrease swelling/inflammation, To increase ROM, To improve nutrient delivery to tissue Please do not hesitate to contact me at [phone] by phone or if you have questions or concerns regarding this new plan of care! Sincerely, Ab Elizabeth DPT
--- NOTE | 2021-04-21 13:28 | HP.PTDCNRP_ITS ---
MYNOR MEDINA was seen in my office for initial evaluation on 02/05/21. The following Plan of Care was established for this patient: Initial Frequency: 2x /Week Initial Duration: 4 Weeks Patient/Client Instruction: Educate patient on: Condition, Plan of Care, Risk Factors, Benefits of Fitness Program For the Purpose of:: To foster healthy habits, To improve decision making, To facilitate caregiver knowledge, To improve self management, To prevent re- injury, To improve ability to perform tasks related to life management Therapeutic Exercise to Include: Strength training, Power training, Postural training, Flexibilty training, Passive ROM, Active ROM, Dynamic Lumbar Stabilization, Toro Exercises For the Purpose of:: To decrease pain, To decrease swelling/inflammation, To increase ROM, To improve nutrient delivery to tissue, To increase oxygenation perfusion, To improve muscle performance and motor function, To improve ability to perform ADL's, To increase tolerance to activity/condition/position, To improve health of tissue, To decrease soft tissue restriction, To increase flexibility/ROM Manual Therapy Techniques to Include: Mobilization, Soft tissue mobilization For the Purpose of:: To decrease pain, To decrease swelling/inflammation, To increase ROM, To improve nutrient delivery to tissue Ultrasound (thermal/non thermal): Yes Pelvic traction supine: Yes For the Purpose of:: To decrease pain, To decrease swelling/inflammation, To increase ROM, To improve nutrient delivery to tissue This patient was last seen in our office 03/06/21. Pertinent comments regarding their Physical therapy will appear below: Pt. was seen for her lumbar DDD. Pt. at our last visit was going to have injections and wanted to wait until after. Pt. has not been seen in ~6-7 weeks and will be DC from PT at this point in time. At this point I will be discontinuing this patient from physical therapy. I would be happy to see this patient again in the future if found appropriate by the physician. Thank you! Ab Elizabeth, DPT Balance/Gait/Functional tests - Balance/Special Test Scores Oswestry Low Back Score: 20
== END 2021-03-06 19:00 | disposition home or self-care (01) ==
LOC: PT 09:00
PROVIDERS: PCP Physician Assistant; Referring Provider Orthopaedic Surgery; Visit Provider Orthopaedic Surgery
DX: M48.061 Spinal stenosis, lumbar region without neurogenic claudication (principal); M47.26 Other spondylosis with radiculopathy, lumbar region
CPT/HCPCS: 97035; 97110; 97161; 97164